=== PATIENT | male | born 1975 | race Two or more races ===

== ENCOUNTER 2023-04-26 21:57 | Inpatient (IN) | payer OTHER ==
[~2023-04-26] VITALS: Ht 167.6 cm; Wt 101.6 kg
[2023-04-26 20:00] VITALS: BP 119/68; TEMP 98.8; O2SAT 97
[2023-04-26 21:15] VITALS: BP 119/67; TEMP 98.8; O2SAT 97
[2023-04-26] MEDS ORDERED: ONDANSETRON HCL/PF 4 MG/2 ML VIAL IVP PRN (22:30)
[2023-04-26] MEDS ORDERED: DEXTROSE 50%-WATER 50 ML DISP.SYRIN IV PRN (22:30)
[2023-04-26] MEDS ORDERED: hydrALAZINE HCL IV 20 MG VIAL IV PRN (22:30)
[2023-04-27] VITALS: BP 132/72; TEMP 99.3; O2SAT 96
[2023-04-27 00:19] LABS: RED CELL DISTRIBUTION WIDTH 16.2 % (11.5-15.0)
[2023-04-27 00:31] LABS: BASOPHILS # (AUTO) 0.1 K/uL (0.0-0.2); EOSINOPHILS # (AUTO) 0.5 K/uL (0.0-0.7); EOSINOPHILS % (AUTO) 6.7 % (0.0-6.0); HEMATOCRIT 25 % (39-51); LYMPHOCYTES # (AUTO) 1.1 K/uL (0.8-4.8); LYMPHOCYTES % (AUTO) 14.3 % (20.0-44.0); MEAN CORPUSCULAR HEMOGLOBIN 28 PG (26.0-33.0); MEAN CORPUSCULAR HGB CONC 32 g/dl (31.0-36.0); MEAN CORPUSCULAR VOLUME 88 fL (80-96); MONOCYTES # (AUTO) 0.8 K/uL (0.1-1.30); MONOCYTES % (AUTO) 10.9 % (2.0-12.0); NEUTROPHILS # (AUTO) 4.9 K/uL (1.8-8.9); NEUTROPHILS % (AUTO) 67.1 % (43.0-81.0); PLATELET COUNT (AUTO) 289 K/uL (150-450); RED BLOOD CELL COUNT(AUTO) 2.88 MIL/uL (4.5-6.0); WHITE BLOOD COUNT (AUTO) 7.4 K/uL (4.3-11.0)
[2023-04-27 00:53] VITALS: BP 132/72; TEMP 99.3; O2SAT 96
[2023-04-27 01:32] LABS: ALBUMIN 2.4 g/dL (3.4-5.0); BILIRUBIN,TOTAL 0.4 mg/dL (0.2-1.0); CALCIUM, SERUM 8.1 mg/dL (8.5-10.1); CREATININE 5.7 mg/dL (0.6-1.3); POTASSIUM 5.5 mmol/L (3.5-5.1); TOTAL PROTEIN, SERUM 6.1 g/dL (6.4-8.2)
[2023-04-27 04:00] VITALS: BP 124/65; TEMP 99.1; O2SAT 95
[2023-04-27 04:05] VITALS: BP 124/65; TEMP 99.1; O2SAT 95
[2023-04-27 07:08] LABS: ALBUMIN 2.5 g/dL (3.4-5.0); BILIRUBIN,TOTAL 0.4 mg/dL (0.2-1.0); CREATININE 5.8 mg/dL (0.6-1.3); MAGNESIUM 2.4 mg/dL (1.8-2.4); PHOSPHORUS 7.3 mg/dL (2.5-4.9); TOTAL PROTEIN, SERUM 6.1 g/dL (6.4-8.2)
[2023-04-27 07:30] VITALS: BP 139/74; TEMP 98.6; O2SAT 98
[2023-04-27] MEDS: INSULIN REGULAR, HUMAN 100 UNIT/ML 3 ML VIAL SQ PRN (08:08)
[2023-04-27] MEDS: BLOOD SUGAR DIAGNOSTIC 1 EACH STRIP VI SCH (08:08)
[2023-04-27 08:36] LABS: BASOPHILS # (AUTO) 0.1 K/uL (0.0-0.2); BASOPHILS % (AUTO) 1.2 % (0.0-2.0); EOSINOPHILS # (AUTO) 0.4 K/uL (0.0-0.7); EOSINOPHILS % (AUTO) 5.5 % (0.0-6.0); HEMATOCRIT 26 % (39-51); LYMPHOCYTES # (AUTO) 0.7 K/uL (0.8-4.8); LYMPHOCYTES % (AUTO) 9.9 % (20.0-44.0); MEAN CORPUSCULAR HEMOGLOBIN 28 PG (26.0-33.0); MEAN CORPUSCULAR HGB CONC 31 g/dl (31.0-36.0); MEAN CORPUSCULAR VOLUME 89 fL (80-96); MONOCYTES # (AUTO) 0.6 K/uL (0.1-1.30); NEUTROPHILS # (AUTO) 5.6 K/uL (1.8-8.9); NEUTROPHILS % (AUTO) 75.4 % (43.0-81.0); PLATELET COUNT (AUTO) 281 K/uL (150-450); RED BLOOD CELL COUNT(AUTO) 2.92 MIL/uL (4.5-6.0); RED CELL DISTRIBUTION WIDTH 16.2 % (11.5-15.0); WHITE BLOOD COUNT (AUTO) 7.4 K/uL (4.3-11.0)
[2023-04-27] MEDS: HEPARIN SODIUM, PORCINE 5000 UNITS/1 ML VIAL SQ SCH (08:41)
[2023-04-27] MEDS: MORPHINE SULFATE INJ 2 MG/ML DISP.SYRIN IV PRN (10:14)
[2023-04-27] MEDS ORDERED: CALC0.253 PO (14:32)
[2023-04-27] MEDS ORDERED: ATOR20TA PO (14:32)
[2023-04-27] MEDS ORDERED: SEVE0.8P3 PO (14:32)
[2023-04-27] MEDS ORDERED: AMLO-213 PO (14:32)
[2023-04-27] MEDS ORDERED: HYDR-4075 PO (14:32)
[2023-04-27] MEDS ORDERED: ASPI-1420 PO (14:32)
[2023-04-27] MEDS ORDERED: FOLI0.8T2 PO (14:32)
[2023-04-27] MEDS ORDERED: CARV6.252 PO (14:32)
[2023-04-27] MEDS ORDERED: INSU100I26 SQ (14:32)
[2023-04-27] MEDS ORDERED: LOSA25TA27 PO (14:32)
[2023-04-27] MEDS ORDERED: EPOE1000 SQ (14:32)
[2023-04-27] MEDS ORDERED: PANCRELIPASE PO (14:32)
[2023-04-27] MEDS ORDERED: FURO40TA5 PO (14:32)
[2023-04-27] MEDS ORDERED: INSU100V36 SQ (14:32)
[2023-04-27 16:00] VITALS: BP_SYST 121; BP_SYST 144; BP_DIAS 63; BP_DIAS 77; TEMP 98.2; TEMP 99.5; O2SAT 97; O2SAT 98
[2023-04-27] MEDS: *INSULIN REGULAR(HUMULIN R)HUM 100 UNIT/ML VIAL SQ PRN (22:48)
[2023-04-28 06:47] LABS: BASOPHILS # (AUTO) 0.1 K/uL (0.0-0.2); EOSINOPHILS # (AUTO) 0.4 K/uL (0.0-0.7); EOSINOPHILS % (AUTO) 6.4 % (0.0-6.0); HEMATOCRIT 24 % (39-51); HEMOGLOBIN 7.7 g/dL (13.5-17.5); LYMPHOCYTES # (AUTO) 1.3 K/uL (0.8-4.8); LYMPHOCYTES % (AUTO) 18.3 % (20.0-44.0); MEAN CORPUSCULAR HEMOGLOBIN 28 PG (26.0-33.0); MEAN CORPUSCULAR HGB CONC 33 g/dl (31.0-36.0); MEAN CORPUSCULAR VOLUME 86 fL (80-96); MONOCYTES # (AUTO) 0.9 K/uL (0.1-1.30); MONOCYTES % (AUTO) 12.6 % (2.0-12.0); NEUTROPHILS # (AUTO) 4.2 K/uL (1.8-8.9); NEUTROPHILS % (AUTO) 61.7 % (43.0-81.0); PLATELET COUNT (AUTO) 308 K/uL (150-450); RED BLOOD CELL COUNT(AUTO) 2.73 MIL/uL (4.5-6.0); RED CELL DISTRIBUTION WIDTH 15.4 % (11.5-15.0); WHITE BLOOD COUNT (AUTO) 6.9 K/uL (4.3-11.0)
[2023-04-28 07:42] LABS: ALBUMIN 2.5 g/dL (3.4-5.0); BILIRUBIN,TOTAL 0.3 mg/dL (0.2-1.0); CALCIUM, SERUM 7.7 mg/dL (8.5-10.1); CREATININE 4.8 mg/dL (0.6-1.3); MAGNESIUM 2.1 mg/dL (1.8-2.4); POTASSIUM 5.1 mmol/L (3.5-5.1); TOTAL PROTEIN, SERUM 6.2 g/dL (6.4-8.2)
[2023-04-28 08:16] VITALS: BP 127/70; TEMP 98.1; O2SAT 96
[2023-04-28] MEDS: ACETAMINOPHEN 325 MG TABLET PO PRN (08:40)
[2023-04-28 11:17] LABS: INR 1.22 (0.91-1.10); PROTHROMBIN TIME 12.8 SECS (9.2-11.1)
[2023-04-28 11:49] VITALS: BP 131/71; TEMP 98.4; O2SAT 99
[2023-04-28 15:54] VITALS: BP 127/66; TEMP 98.6; O2SAT 98
[2023-04-28 20:00] VITALS: BP 131/72; TEMP 98.4; O2SAT 99
[2023-04-29] VITALS: BP 125/82; TEMP 99; O2SAT 96
[2023-04-29 00:59] LABS: OCCULT BLOOD STOOL NEGATIVE (NEGATIVE)
[2023-04-29 04:00] VITALS: BP 126/70; TEMP 99; O2SAT 94
[2023-04-29 05:08] LABS: HEPATITIS B SURFACE AB Non Reactive (.)
[2023-04-29 08:20] VITALS: BP 135/75; TEMP 98.4; O2SAT 99
[2023-04-29 11:08] LABS: OCCULT BLOOD STOOL NEGATIVE (NEGATIVE)
[2023-04-29 12:00] VITALS: BP 145/83; TEMP 100; O2SAT 98
[2023-04-29 16:29] VITALS: BP 152/76; TEMP 98.6; O2SAT 98
[2023-04-29 20:00] VITALS: BP 141/77; TEMP 98.1; O2SAT 98
[2023-04-30] VITALS: BP 131/71; TEMP 98; O2SAT 98
[2023-04-30 02:16] LABS: OCCULT BLOOD STOOL NEGATIVE (NEGATIVE)
[2023-04-30 04:00] VITALS: BP 129/69; O2SAT 98
[2023-04-30 06:06] LABS: BASOPHILS # (AUTO) 0.1 K/uL (0.0-0.2); BASOPHILS % (AUTO) 1.8 % (0.0-2.0); EOSINOPHILS # (AUTO) 0.4 K/uL (0.0-0.7); HEMATOCRIT 23 % (39-51); HEMOGLOBIN 7.5 g/dL (13.5-17.5); LYMPHOCYTES # (AUTO) 1.3 K/uL (0.8-4.8); LYMPHOCYTES % (AUTO) 18.9 % (20.0-44.0); MEAN CORPUSCULAR HEMOGLOBIN 28 PG (26.0-33.0); MEAN CORPUSCULAR HGB CONC 33 g/dl (31.0-36.0); MEAN CORPUSCULAR VOLUME 86 fL (80-96); MONOCYTES # (AUTO) 0.8 K/uL (0.1-1.30); MONOCYTES % (AUTO) 12.7 % (2.0-12.0); NEUTROPHILS % (AUTO) 60.6 % (43.0-81.0); PLATELET COUNT (AUTO) 314 K/uL (150-450); RED BLOOD CELL COUNT(AUTO) 2.68 MIL/uL (4.5-6.0); RED CELL DISTRIBUTION WIDTH 15.7 % (11.5-15.0); WHITE BLOOD COUNT (AUTO) 6.6 K/uL (4.3-11.0)
[2023-04-30 06:23] LABS: CALCIUM, SERUM 7.9 mg/dL (8.5-10.1); CREATININE 6.9 mg/dL (0.6-1.3); MAGNESIUM 2.2 mg/dL (1.8-2.4); PHOSPHORUS 7.4 mg/dL (2.5-4.9); POTASSIUM 5.5 mmol/L (3.5-5.1)
[2023-04-30 08:00] VITALS: BP 146/75; TEMP 98.4; O2SAT 97
[2023-04-30] MEDS: hydrALAZINE HCL 10 MG TABLET PO SCH (13:00)
[2023-04-30 16:03] VITALS: BP 156/79; TEMP 98.2; O2SAT 94
[2023-04-30] MEDS: CARVEDILOL 6.25 MG TABLET PO SCH (18:14)
[2023-04-30 20:00] VITALS: BP 144/60; TEMP 98.8; O2SAT 97
[2023-04-30] MEDS: INSULIN GLARGINE, 100 UNIT/ML CARTRIDGE SQ SCH (22:48)
[2023-05-01 04:00] VITALS: BP 129/68; TEMP 98.4; O2SAT 100
[2023-05-01 06:33] LABS: BASOPHILS # (AUTO) 0.1 K/uL (0.0-0.2); BASOPHILS % (AUTO) 1.2 % (0.0-2.0); EOSINOPHILS # (AUTO) 0.5 K/uL (0.0-0.7); EOSINOPHILS % (AUTO) 7.6 % (0.0-6.0); HEMATOCRIT 24 % (39-51); HEMOGLOBIN 7.6 g/dL (13.5-17.5); LYMPHOCYTES # (AUTO) 1.2 K/uL (0.8-4.8); LYMPHOCYTES % (AUTO) 18.9 % (20.0-44.0); MEAN CORPUSCULAR HEMOGLOBIN 28 PG (26.0-33.0); MEAN CORPUSCULAR HGB CONC 32 g/dl (31.0-36.0); MEAN CORPUSCULAR VOLUME 87 fL (80-96); MONOCYTES # (AUTO) 0.7 K/uL (0.1-1.30); MONOCYTES % (AUTO) 11.8 % (2.0-12.0); NEUTROPHILS # (AUTO) 3.7 K/uL (1.8-8.9); NEUTROPHILS % (AUTO) 60.5 % (43.0-81.0); PLATELET COUNT (AUTO) 292 K/uL (150-450); RED BLOOD CELL COUNT(AUTO) 2.73 MIL/uL (4.5-6.0); RED CELL DISTRIBUTION WIDTH 16.3 % (11.5-15.0); WHITE BLOOD COUNT (AUTO) 6.2 K/uL (4.3-11.0)
[2023-05-01 06:57] LABS: CALCIUM, SERUM 7.2 mg/dL (8.5-10.1); CREATININE 5.7 mg/dL (0.6-1.3); MAGNESIUM 1.9 mg/dL (1.8-2.4); PHOSPHORUS 6.2 mg/dL (2.5-4.9)
[2023-05-01 07:30] VITALS: BP 133/79; TEMP 98.8; O2SAT 96
[2023-05-01] MEDS: ASPIRIN EC 81 MG TABLET.DR PO SCH (08:43)
[2023-05-01] MEDS: ATORVASTATIN 10 MG TABLET PO SCH (08:44)
[2023-05-01] MEDS: LOSARTAN POTASSIUM 25 MG TABLET PO SCH (08:44)
[2023-05-01] MEDS: CALCITRIOL 0.25 MCG CAPSULE PO SCH (08:44)
[2023-05-01] MEDS: VIT B CMPLX 3/FA/VIT C/BIOTIN 1 TAB TABLET PO SCH (08:44)
[2023-05-01] MEDS: AMLODIPINE BESYLATE 10 MG TABLET PO SCH (08:45)
[2023-05-01] MEDS ORDERED: LORAZEPAM INJ 2 MG/ML VIAL IV ONE (13:00)
[2023-05-02 08:27] VITALS: BP 119/71; TEMP 97.5; O2SAT 100
[2023-05-02] MEDS: SEVELAMER CARBONATE 800 MG TABLET PO SCH (08:50)
[2023-05-02 15:46] VITALS: BP_SYST 108; BP_SYST 82; BP_DIAS 62; BP_DIAS 66; TEMP 97.6; TEMP 98.2; O2SAT 96
[2023-05-02 17:00] VITALS: BP 108/66
[2023-05-02] MEDS: diphenhydrAMINE HCL ELIX 25 MG/10 ML UDC PO PRN (17:11)
== END 2023-05-02 18:11 | DRG 425 ==
LOC: TELE 21:58 → MED 04-30 16:41
PROVIDERS: ADMIT Internal Medicine; ATTEND Nurse Practitioner Acute Care
PROC: 5A1D70Z Performance of Urinary Filtration, Intermittent, Less than 6 Hours Per Day (ICD-10-PCS; principal; 2023-04-27)
DX: E87.5 Hyperkalemia (principal); I12.0 Hypertensive chronic kidney disease with stage 5 chronic kidney disease or end stage renal disease; E11.22 Type 2 diabetes mellitus with diabetic chronic kidney disease; D63.1 Anemia in chronic kidney disease; N18.6 End stage renal disease; E11.40 Type 2 diabetes mellitus with diabetic neuropathy, unspecified; R29.6 Repeated falls; Z99.2 Dependence on renal dialysis; G89.29 Other chronic pain; R53.1 Weakness; N25.0 Renal osteodystrophy; Z91.199 Patient's noncompliance with other medical treatment and regimen due to unspecified reason; Z91.81 History of falling; Z79.4 Long term (current) use of insulin
CPT/HCPCS: 36415; 72131-TC; 80048-TC; 80053-TC; 82272-TC; 82550-TC; 82607-TC; 82728-TC; 82962-TC; 83540-TC; 83735-TC; 83970; 84100-TC; 85025-TC; 85610-TC; 85730-TC; 86706; 87340; 90935-TC; 93970-TC; 97116-TC; 97530-TC; 97535-TC; G0378; J1644; J1815; J2270; J7030; Q0163